=== PATIENT | male | born 1940 | race Caucasian/White ===

== ENCOUNTER → 2017-09-13 | Outpatient (CLI) | payer OTHER, MEDICARE | LOC: BHFA 10:45 | PROVIDERS: ATTEND Internal Medicine | DX: I10 Essential (primary) hypertension (principal) ==

== ENCOUNTER 2018-01-09 12:29 | Emergency (ER) | payer OTHER, MEDICARE ==
--- NOTE | 2018-01-09 13:16 | CPEKG ---
Heart Rate: 50 RR Interval: 1200 P-R Interval: 204 QRSD Interval: 76 QT Interval: 424 QTC Interval: 387 P Camden: 1 QRS Camden: -2 T Wave Camden: 37 EKG Severity - NORMAL ECG - EKG Impression: SINUS RHYTHM Electronically Signed By: Melania Kern 09-Jan-2018 21:32:31
--- NOTE | 2018-01-09 13:29 | EDPHY ---
H & P Stated Complaint: Hit head at 11.30am having trouble remembering event. Time Seen by Provider: 01/09/18 13:00 HPI/ROS: CHIEF COMPLAINT: Head injury, amnesia HISTORY OF PRESENT ILLNESS: 77-year-old male with hypertension presents after a head injury with amnesia. He was trimming the hedge at his daughter's house with his daughter and [id number]. His daughter suddenly realized that she did not know where he was. She looked around the house and found the patient in his car. She asked him what he was doing in the car and he did not know. He did not recall a fall. He had a scalp abrasion, but denied LONG/neck pain. He feels back to his usual self, but does not recall the event. He denies syncope , chest pain, shortness of breath or headache. No prior similar episodes. REVIEW OF SYSTEMS: complete 10 point ROS negative except at noted in the HPI - Personal History Current Tetanus Diphtheria and Acellular Pertussis (TDAP): Yes - Medical/Surgical History PMH: Chronic renal insufficiency Hx Asthma: No Hx Chronic Respiratory Disease: No Hx Diabetes: No Hx Cardiac Disease: No Hx Renal Disease: Yes Hx Cirrhosis: No Hx Alcoholism: No Hx HIV/AIDS: No Hx Splenectomy or Spleen Trauma: No Other PMH: Kidney issues. - Social History Smoking Status: Never smoked - Physical Exam Exam: General Appearance: Alert, no distress Head: Abrasion posterior aspect of scalp, no surrounding tenderness Eyes: No conjunctival erythema, PERRLA, EOMI ENT, Mouth: No hemotympanum, no oral trauma, no bony tenderness Neck: Nontender, full range of motion without pain Respiratory: No chest wall tenderness, lungs clear bilaterally Cardiovascular: Regular rate and rhythm Abdomen: Abdomen is soft and nontender Skin: No lacerations, no abrasions Back: No midline T/L/S tenderness Extremities: Pelvis is stable and nontender; no extremity tenderness or deformity, full range of motion without pain Neurological: A&Ox3, normal motor function, normal sensory exam, cranial nerves intact Psychiatric: Mood and affect normal Constitutional: Initial Vital Signs Temperature (C) 36.6 C 01/09/18 12:30 Heart Rate 54 L 01/09/18 12:30 Respiratory Rate 16 01/09/18 12:30 Blood Pressure 129/82 H 01/09/18 12:30 O2 Sat (%) 93 01/09/18 12:30 O2 Delivery Mode Room Air Allergies/Adverse Reactions: iodine Allergy (Uncoded 01/09/18 12:33) Home Medications: Medication Instructions Recorded Allopurinol 01/09/18 Dutasteride 01/09/18 HCTZ (*) 01/09/18 Metoprolol Tartrate 01/09/18 Medical Decision Making - Diagnostics EKG Interpretation: EKG interpreted by me reveals sinus bradycardia, rate 50, no ST or T segment changes. Interpretation: Normal EKG Imaging Results: CT scan of the brain read by the radiologist reveals no acute disease. Imaging: Discussed imaging studies w/ scallop dredger Radiologist, I viewed and interpreted images myself ED Course/Re-evaluation: This patient presents with amnesia after a closed head injury of unknown etiology. Concern for intracranial hemorrhage, seizure, concussion. Physical exam is normal except for a small scalp abrasion and he is at his baseline normal mental status. Stat EKG reveals no evidence of ischemia or dysrhythmia. Laboratory tests are unremarkable. Creatinine 2.2, which is at his baseline, when compared to his prior creatinines. CT scan results discussed with the patient and his family. He continues to be asymptomatic. He ambulated throughout the emergency department and was asymptomatic. Feel that he is safe and stable for discharge home. The etiology of his head injury is unclear, but most likely secondary to a fall. Closed head injury precautions discussed with the patient and his family. He will stay with his family for 24 hr for close observation at home. Differential Diagnosis: Includes though is not limited to intracranial hemorrhage, seizure, TIA, hypoglycemia, concussion, syncope, dysrhythmia. - Data Points Laboratory Results: Laboratory Results 01/09/18 13:05 01/09/18 13:05 Departure - Departure Disposition: Home, Routine, Self-Care Clinical Impression: Head injury Condition: Good Instructions: Head Injury (ED) Additional Instructions: Someone should stay with you for the next 24 hr. Return for unusual behavior, headache, vomiting or any concerns. Referrals: Emerald Tierney MD [Medical Doctor] - As per Instructions
[2018-01-09 13:32] LABS: PLATELET COUNT 164 10^3/uL (150-400)
[2018-01-09 14:54] VITALS: BP 130/71
== END 2018-01-09 14:51 | disposition home or self-care (01) ==
DX: S09.90XA Unspecified injury of head, initial encounter (principal); X58.XXXA Exposure to other specified factors, initial encounter; Y92.810 Car as the place of occurrence of the external cause; Y99.8 Other external cause status; Y93.89 Activity, other specified

== ENCOUNTER 2018-03-16 11:13 | Day surgery (SDC) | payer OTHER, MEDICARE ==
[2018-03-16] MEDS ORDERED: LR 1,000 ML IV ONE (11:22)
--- NOTE | 2018-03-16 12:34 | PDANEPAE ---
ANE Past Medical History - Cardiovascular History Hx Hypertension: Yes Hx Arrhythmias: No Hx Chest Pain: No Hx Coronary Artery / Peripheral Vascular Disease: No Hx CHF / Valvular Disease: No Hx Palpitations: No - Pulmonary History Hx COPD: No Hx Asthma/Reactive Airway Disease: No Hx Recent Upper Respiratory Infection: No Hx Oxygen in Use at Home: No Hx Sleep Apnea: No Sleep Apnea Screening Result - Last Documented: Positive - Neurologic History Hx Cerebrovascular Accident: No Hx Seizures: No Hx Dementia: No - Endocrine History Hx Diabetes: No Hypothyroid: No Hyperthyroid: No Obesity: mild - Renal History Hx Renal Disorders: Yes Renal History Comment: MODERATE KIDNEY DISEASE - Liver History Hx Hepatic Disorders: No - Neurological & Psychiatric Hx Hx Neurological and Psychiatric Disorders: No - Cancer History Hx Cancer: No - Congenital Disorder History Hx Congenital Disorders: No - GI History Hx Gastrointestinal Disorders: Yes Gastrointestinal History Comment: POLYPS - Other Health History Other Health History: none - Chronic Pain History Chronic Pain: No - Surgical History Prior Surgeries: colonoscopy ANE Review of Systems Review of Systems: - Exercise capacity METS (RN): 4 METS ANE Patient History - Allergies Allergies/Adverse Reactions: iodine Allergy (Uncoded 03/09/18 11:56) Other-Enter Comments - Home Medications Home Medications: Allopurinol 01/09/18 [Last Taken 03/15/18] Dutasteride 01/09/18 [Last Taken 03/15/18] HCTZ (*) 01/09/18 [Last Taken 03/15/18] Metoprolol Tartrate 01/09/18 [Last Taken 03/15/18] Calcitriol 03/09/18 [Last Taken 03/15/18] Cholecalciferol (Vitamin D3) 03/09/18 [Last Taken 03/15/18] Lisinopril 03/09/18 [Last Taken 03/15/18] Simvastatin 03/09/18 [Last Taken 03/15/18] Tamsulosin HCl 03/09/18 [Last Taken 03/15/18] - NPO status NPO Since - Liquids (Date): 03/16/18 NPO Since - Liquids (Time): 10:30 NPO Since - Solids (Date): 03/15/18 NPO Since - Solids (Time): 20:00 - Smoking Hx Smoking Status: Former smoker - Family Anes Hx Family Hx Anesthesia Complications: none ANE Labs/Vital Signs - Vital Signs Blood Pressure: 96/58 Heart Rate: 64 Respiratory Rate: 14 O2 Sat (%): 97 Height: 190.5 cm Weight: 95.254 kg ANE Physical Exam - Airway Neck exam: decreased ROM Mallampati Score: Class 1 Mouth exam: normal dental/mouth exam - Pulmonary Pulmonary: no respiratory distress - Cardiovascular Cardiovascular: regular rate and rhythym - ASA Status ASA Status: III ANE Anesthesia Plan Anesthesia Plan: GA with mask
[2018-03-16] MEDS ORDERED: MIDAZOLAM 2 MG/2 ML VIAL ONE (12:40)
[2018-03-16] MEDS ORDERED: fentaNYL 100 MCG/2 ML INJ ONE (12:40)
--- NOTE | 2018-03-16 12:47 | PDPROPOC ---
Sedation Plan of Care Sedation Plan of Care: vital signs stable, mental status noted, patient educated of risks, benefits, alternatives, patient can tolerate sedation ASA Classification: ASA 2 Planned drugs: fentanyl, midazolam Mallampati Score: Class 2 Mallampati Reference Image: Patient passed 3-3-2 rule?: Yes
--- NOTE | 2018-03-16 12:50 | PDGENHP ---
History & Physical Chief Complaint: phx large polyp History of Present Illness: large polyp removed in [facility] 09/2017 Pertinent Past, Social, Family History: no tobacco, alcohbol occ. FHx - no colon cancer. gout, HTN, hyperchol Relevant Physical Exam: A+oX3. CTA. S1S2, RRR, +bs, soft. +BS, soft, nt Cardiorespiratory Assessment: class 2
--- NOTE | 2018-03-16 13:37 | GIREPORT ---
[facility] Surgical Services - Endoscopy Department Patient Name: Raymundo Conde Procedure Date: 03/16/2018 10:54 AM Patient Type: Outpatient Attending MD/ ER Physician: Low Fields Procedure: Colonoscopy Indications: Surveillance: Personal history of piecemeal removal of large sessile ad enoma on last colonoscopy 6 months ago Providers: Bandar Singleton MD Referring MD: Fernando Laguerre Medicines: Midazolam 4 mg IV, Fentanyl 100 micrograms IV Complications: No immediate complications. Estimated blood loss: Minimal. Description of Procedure: After obtaining informed consent, the scope was passed under direct vis ion. Throughout the procedure, the patient's blood pressure, pulse, and oxyg en saturations were monitored continuously. The Colonoscope with irrigatio n channel was introduced through the anus and advanced to the cecum, identified by the appendiceal orifice, ileocecal valve and palpation. T he colonoscopy was performed without difficulty. The patient tolerated the procedure well. The quality of the bowel preparation was fair. Findings: The digital rectal exam was normal. A post polypectomy scar was found in the cecum. There was residual poly p tissue. The polyp was removed with a cold snare. Polyp resection was incomplete. The resected tissue was retrieved. Estimated blood loss was minimal. Fulguration to ablate the lesion remnants by argon plasma at 0 .5 liters/minute and 20 fischer was successful. Estimated blood loss was min imal. A 3 mm polyp was found in the ascending colon. The polyp was sessile. T he polyp was removed with a piecemeal technique using a cold biopsy forcep s. Resection and retrieval were complete. Estimated blood loss was minimal . A 5 mm polyp was found in the hepatic flexure. The polyp was semi-sessi le. The polyp was removed with a cold snare. Resection and retrieval were complete. Estimated blood loss was minimal. Many diverticula were found in the sigmoid colon and descending colon. The exam was otherwise without abnormality. Estimated Blood Loss: Estimated blood loss was minimal. Post Op Diagnosis: - Preparation of the colon was fair. - Post-polypectomy scar in the cecum. Treated with argon plasma coagula tion (APC). - One 3 mm polyp in the ascending colon, removed piecemeal using a cold biopsy forceps. Resected and retrieved. - One 5 mm polyp at the hepatic flexure, removed with a cold snare. Res ected and retrieved. - Diverticulosis in the sigmoid colon and in the descending colon. - The examination was otherwise normal. Recommendation: - Await pathology results. - My office will call with the pathology result with 5-7 days. If you h ave not heard from my office by -14, do not assume the pathology is maddie l, please call [phone] to get the pathology results. - Repeat colonoscopy in 1 year for surveillance based on pathology resu lts. - High fiber diet indefinitely. - 30-35 grams of dietary fiber per day. Can use supplemental fiber. - A high fiber diet may decrease risk of complications from diverticulo sis. There is no need to avoid seeds or nuts. - Continue present medications. - Avoid Aspirin and NSAIDs for 7-10 days except as used for cardiac or stroke prevention. - Patient has a contact number available for emergencies. The signs and symptoms of potential delayed complications were discussed with the pat ient. Return to normal activities tomorrow. Written discharge instructions we re provided to the patient. - Discharge patient to home (ambulatory). - Return to primary care physician as previously scheduled. - Thank you for allowing me to help in your patient's care. Do not hesi chavez to call with any questions. Attending Participation: I personally performed the entire procedure. Mani Portillo M.D Bandar Singleton MD 03/16/2018 1:36:25 PM This report has been signed electronicallyMathew MD Mani Number of Addenda: 0 Note Initiated On: 03/16/2018 10:54 AM [email or web address]
[2018-03-16 14:19] VITALS: BP 95/61
== END 2018-03-16 14:21 | disposition home or self-care (01) ==
LOC: FSGY 11:13
PROVIDERS: ATTEND Internal Medicine Gastroenterology
DX: Z09 Encounter for follow-up examination after completed treatment for conditions other than malignant neoplasm (principal); D12.0 Benign neoplasm of cecum; D12.2 Benign neoplasm of ascending colon; K63.5 Polyp of colon; K57.30 Diverticulosis of large intestine without perforation or abscess without bleeding; N18.9 Chronic kidney disease, unspecified; I12.9 Hypertensive chronic kidney disease with stage 1 through stage 4 chronic kidney disease, or unspecified chronic kidney disease; E78.5 Hyperlipidemia, unspecified; M10.9 Gout, unspecified; Z86.010 Personal history of colon polyps; Z87.891 Personal history of nicotine dependence
CPT/HCPCS: J2250; J3010

== ENCOUNTER 2018-03-17 12:13 | Emergency (ER) | payer OTHER, MEDICARE ==
--- NOTE | 2018-03-17 12:18 | EDPHY ---
HPI/HX/ROS/PE/MDM Narrative: CHIEF COMPLAINT: Syncope HPI: The patient is a 77 y/o male with a history of hypertension arriving with his via EMS for evaluation after a syncopal episode today. The patient was sitting on a bench at a stable watching his granddaughter when he began to feel lightheaded and diaphoretic. Per family members, he then became unresponsive for about 3-5 seconds, but did not fall or sustain any trauma. He was not confused when he regained consciousness. EMS found him hypotensive around 90/60 and bradycardic in the upper 40s to low 50s. They administered 500mL en route with improvement in his BP to 110 systolic. The patient denies chest pain or dyspnea at any point during this episode. He notes he has not eaten much in the last 2 days due to a routine colonoscopy yesterday. He was apparently hypotensive and required Trendelenburg positioning throughout that procedure. He denies any known cardiac disease, though remembers one prior "dizzy spell that may have been low blood pressure." He is feeling significantly improved upon assessment here and is no longer lightheaded. REVIEW OF SYSTEMS: Aside from elements discussed in the HPI, a comprehensive 10-point review of systems was reviewed and is negative. PMH: Hypertension, BPH, "something for kidneys" SOCIAL HISTORY: at bedside. Lives in [place]. Academic Support Specialist: Dr. Gan. GI: Dr. Singleton PHYSICAL EXAM: General:Patient is alert, in no acute distress. ENT:Eyes are normal to inspection. ENT inspection normal. Neck: Normal inspection. Full range of motion. Respiratory:No respiratory distress. Breath sounds normal bilaterally. Cardiovascular: Bradycardic regular rate and rhythm. Strong peripheral pulses. Normal cap refill. Abdomen:The abdomen is nontender to palpation. There are no peritoneal signs. Back: Normal to inspection. No tenderness to palpation. Skin: Normal color. No rash. Warm and dry. Extremities: Normal appearance. Full range of motion. Neuro: Oriented x3. Normal motor function. Normal sensory function. ED Course: This is a 77 y/o male who presents after a syncopal episode today. He is currently asymptomatic. Exam unremarkable. Plan for IV, labs, EKG. 1L IV NS ordered. The 12 lead EKG was interpreted by myself. See hard copy and/or "tracemaster" electronic copy for interpretation. The patient is unable to tell me what his kidney problems are. Attempted to consult with patient's clean room assembler, Dr. Gan, but he is not available. Consulted with his partner, Dr. Aguilar, who agreed with plan to halt metoprolol and also recommended stopping his HCTZ until he can follow up with their office. Reassessed patient and discussed work up. Recommended admission for further evaluation of symptoms, but he would declined. Recommended halting metoprolol and HCTZ until he can see his clean room assembler, which he agrees to. Return precautions discussed. He is comfortable with plan for discharge. - Data Points Laboratory Results: Laboratory Results 03/17/18 12:15 03/17/18 12:15 03/17/18 03/17/18 03/17/18 12:26 12:15 12:15 WBC 8.15 10^3/uL 10^3/uL (3.80-9.50) RBC 4.46 10^6/uL 10^6/uL (4.40-6.38) Hgb 14.9 g/dL g/dL (13.7-17.5) Hct 43.6 % % (40.0-51.0) MCV 97.8 fL fL (81.5-99.8) MCH 33.4 pg pg (27.9-34.1) MCHC 34.2 g/dL g/dL (32.4-36.7) RDW 12.5 % % (11.5-15.2) Plt Count 218 10^3/uL 10^3/uL (150-400) MPV 10.0 fL fL (8.7-11.7) Neut % (Auto) 70.8 % % (39.3-74.2) Lymph % (Auto) 16.4 % % (15.0-45.0) Weakley % (Auto) 9.0 % % (4.5-13.0) Eos % (Auto) 3.2 % % (0.6-7.6) Baso % (Auto) 0.2 % L % (0.3-1.7) Nucleat RBC Rel Count 0.0 % % (0.0-0.2) Absolute Neuts (auto) 5.77 10^3/uL 10^3/uL (1.70-6.50) Absolute Lymphs (auto) 1.34 10^3/uL 10^3/uL (1.00-3.00) Absolute Monos (auto) 0.73 10^3/uL 10^3/uL (0.30-0.80) Absolute Eos (auto) 0.26 10^3/uL 10^3/uL (0.03-0.40) Absolute Basos (auto) 0.02 10^3/uL 10^3/uL (0.02-0.10) Absolute Nucleated RBC 0.00 10^3/uL 10^3/uL (0-0.01) Immature Gran % 0.4 % % (0.0-1.1) Immature Gran # 0.03 10^3/uL 10^3/uL (0.00-0.10) Sodium 139 mEq/L mEq/L (135-145) Potassium 5.1 mEq/L H mEq/L (3.3-5.0) Chloride 108 mEq/L mEq/L (97-110) Carbon Dioxide 18 mEq/l L mEq/l (22-31) Anion Gap 13 mEq/L mEq/L (8-16) BUN 63 mg/dL H mg/dL (7-23) Creatinine 2.5 mg/dL H mg/dL (0.7-1.3) Estimated GFR 25 Glucose 130 mg/dL H mg/dL (70-100) Calcium 9.7 mg/dL mg/dL (8.5-10.4) POC Troponin I 0.00 ng/mL ng/mL (0.00-0.08) Medications Given: Discontinued Medications Sodium Chloride (Ns) 1,000 mls @ 0 mls/hr IV EDNOW ONE; Wide Open PRN Reason: Protocol Stop: 03/17/18 12:21 Last Admin: 03/17/18 12:30 Dose: 1,000 mls Sodium Chloride (Ns) 1,000 mls @ 0 mls/hr IV EDNOW ONE; Wide Open PRN Reason: Protocol Stop: 03/17/18 13:02 Last Admin: 03/17/18 13:30 Dose: 1,000 mls Point of Care Test Results: Chemistry 03/17/18 12:26 POC Troponin I 0.00 ng/mL ng/mL (0.00-0.08) General Time Seen by Provider: 03/17/18 12:14 Initial Vital Signs: Initial Vital Signs Temperature (C) 36.5 C 03/17/18 12:32 Heart Rate 54 L 03/17/18 12:32 Respiratory Rate 16 03/17/18 12:32 Blood Pressure 116/66 03/17/18 12:32 O2 Sat (%) 99 03/17/18 12:32 O2 Delivery Mode Room Air Allergies/Adverse Reactions: iodine Allergy (Uncoded 03/09/18 11:56) Other-Enter Comments Home Medications: Medication Instructions Recorded Allopurinol 01/09/18 Dutasteride 01/09/18 HCTZ (*) 01/09/18 Metoprolol Tartrate 01/09/18 Calcitriol 03/09/18 Cholecalciferol (Vitamin D3) 03/09/18 Lisinopril 03/09/18 Simvastatin 03/09/18 Tamsulosin HCl 03/09/18 Departure - Departure Disposition: Home, Routine, Self-Care Clinical Impression: Syncope Qualifiers: Syncope type: unspecified Qualified Code(s): R55 - Syncope and collapse Condition: Good Instructions: Syncope (ED) Additional Instructions: 1. Discontinue your metoprolol and HCTZ until directed otherwise by your clean room assembler. 2. Follow up with your clean room assembler on Tuesday for reevaluation. 3. Return to the ED for any recurrent symptoms or other worsening of condition. Referrals: Balaji Gan MD [Medical Doctor] - As per Instructions Report Scribed for: Joey Clinton Report Scribed by: Bia Camacho Date of Report: 03/17/18 Time of Report: 12:12 Physician Review and Approval Statement: Portions of this note were transcribed by an ED scribe. I personally performed the history, physical exam, and medical decision making; and confirm the accuracy of the information in the transcribed note.
[2018-03-17] MEDS ORDERED: NS 1,000 ML IV ONE ×2 (12:20→13:01)
[2018-03-17 12:36] LABS: PLATELET COUNT 218 10^3/uL (150-400)
--- NOTE | 2018-03-17 12:42 | CPEKG ---
Heart Rate: 49 RR Interval: 1224 P-R Interval: 200 QRSD Interval: 82 QT Interval: 440 QTC Interval: 398 P Eland: 19 QRS Eland: 6 T Wave Eland: 46 EKG Severity - OTHERWISE NORMAL ECG - EKG Impression: SINUS BRADYCARDIA Electronically Signed By: Duran Patel 19-Mar-2018 09:08:20
[2018-03-17 14:12] VITALS: BP 111/69
== END 2018-03-17 14:12 | disposition home or self-care (01) ==
LOC: EDUNIT#
DX: R55 Syncope and collapse (principal); E86.9 Volume depletion, unspecified; I10 Essential (primary) hypertension
CPT/HCPCS: 84484-PO